=== PATIENT | male | born 1945 | race African-American/Black ===

== ENCOUNTER 2018-12-05 18:14 | Inpatient (IN) ==
[2018-12-05] MEDS ORDERED: CEFEPIME 2,000 MG/20 ML VIAL IV STA (18:41)
[2018-12-05] MEDS ORDERED: SODIUM CHLORIDE 0.9% 1000ML 1,000 ML IV ONE ×2 (18:43→20:13)
[2018-12-05] MEDS ORDERED: ACETAMINOPHEN 65 ML IV SCH (18:45)
--- NOTE | 2018-12-05 18:58 | XRay Report ---
XR chest 1V portable CLINICAL HISTORY: Sepsis COMPARISON STUDY: No previous studies for comparison. FINDINGS: Lung volumes are normal. There is no pneumothorax or pleural effusion. There is no evidence for pulmonary edema. Cardiac size is normal. Mediastinal contours are normal. A moderate size left m idlung airspace opacity is noted. IMPRESSION: Left midlung airspace opacity which favors pneumonia. Post treatment radiographs to ensu re resolution are recommended. Electronically signed by: Hussein Blevins M.D. 12/05/2018 6:56 PM
[2018-12-05] MEDS ORDERED: AZITHROMYCIN 500 MG in DEXTROSE 5% 250 ML IV SCH (19:00)
[2018-12-05] MEDS ORDERED: ALBUT/IPRATROP 3MG/0.5MG NEB 3 ML VIAL NEB STA (19:01)
[2018-12-05 19:24] LABS: Basophils # (auto) 0.01 K/uL (0-0.2); Basophils % (auto) 0.1 %; Eosinophils # (auto) 0.01 K/uL (0-0.5); Eosinophils % (auto) 0.1 %; Hematocrit (blood only) 37.1 % (42-52); Hemoglobin 12.8 g/dL (14.0-18.0); Immature Granulocytes # (auto) 0.03 K/uL (0.00-0.02); Immature Granulocytes % (auto) 0.3 %; Lymphocytes % (auto) 19.9 %; Mean Corpuscular Hemoglobin 29.9 pg (25-34); Mean Corpuscular Hgb Conc 34.5 g/dL (32-36); Mean Corpuscular Volume 86.7 fL (80-100); Mean Platelet Volume 9.8 fL (7.4-10.4); Monocytes % (auto) 10.4 %; Neutrophils # (auto) 7.28 K/uL (1.4-6.5); Neutrophils % (auto) 69.2 %; Platelet Count 196 K/uL (130-400); RDW Coefficient of Variation 14.8 % (11.5-14.5); Red Blood Count 4.28 M/uL (4.7-6.1); White Blood Count 10.53 K/uL (4.8-10.8)
[2018-12-05 19:34] LABS: Appearance Urine Cloudy (Clear); Bacteria Urine Automated Negative (Negative); Bilirubin Urine Negative (Negative); Blood Urine 2+ (Negative); Color Urine Yellow; Epithelial Cell Urine Auto >30 /lpf (0-5); Glucose Urine UA Negative (Negative); Ketones Urine Trace (Negative); Leukocyte Esterase Urine Negative (Negative); Nitrite Urine Negative (Negative); Protein Urine 1+ (Negative); Specific Gravity Urine 1.022 (1.000-1.030); Urobilinogen Urine Negative (Negative)
[2018-12-05 19:35] LABS: Prothrombin Time 10.7 Seconds (9.0-12.0)
[2018-12-05] MEDS ORDERED: AZITHROMYCIN 500 MG in DEXTROSE 5% 250 ML IV ONE (19:45)
[2018-12-05 19:46] LABS: Alanine Aminotransferase 73 U/L (12-78); Albumin Level 3.4 gm/dl (3.4-5.0); Aspartate Aminotransferase 82 U/L (15-37); BUN Creatinine Ratio 14.6 (10-20); Blood Urea Nitrogen 33 mg/dl (7-18); Carbon Dioxide 24 mmol/L (21-32); Chloride 100 mmol/L (98-107); Creatinine Clr Calc Pharmacy 34.7 ml/min; Est GFR (African American) 32.4; Glucose 103 mg/dl (70-99); Potassium 4.3 mmol/L (3.5-5.1); Sodium 134 mmol/L (136-145)
[2018-12-05 19:48] LABS: RBC Urine Automated 0-4 /hpf (0-4)
[2018-12-05 19:49] LABS: Albumin Globulin Ratio 0.7 (0.9-2); Alkaline Phosphatase 116 U/L (45-117); Bilirubin,Total 0.5 mg/dl (0.2-1); Total Protein 8.4 gm/dl (6.4-8.2)
--- NOTE | 2018-12-05 20:42 | CT Scan Report ---
CT OF THE ABDOMEN AND PELVIS WITHOUT CONTRAST CLINICAL HISTORY: Possible stone. Right-sided pain. COMPARISON STUDY: No previous studies for comparison. TECHNIQUE: Axial images of the abdomen and pelvis were obtained without IV contrast. Images were revi ewed in the axial, sagittal, and coronal planes. Automated exposure control was utilized for the hunter dy. A dose lowering technique was utilized adhering to the principles of ALARA. FINDINGS: Business Objects Developer tomogram demonstrates left midlung airspace opacity. No ureteral calculi are present. There is no hydronephrosis. A 2 mm calcification may reflect a right renal calculus or a cortical ca lcification. There is no hydronephrosis or hydroureter. A water attenuation lesion within the upper p ole of the left kidney is suboptimally assessed on this unenhanced exam but favors a cyst. Unenhanced images of the liver, spleen, adrenal glands and pancreas are unremarkable. There is no evidence for a bowel obstruction. There is hyperdense material within the appendix without evidence for acute appe ndicitis. Note is made of sigmoid diverticulosis without evidence for acute diverticulitis. 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 Prominent bilateral lingual lymph nodes are indeterm inate but probably benign. There is extensive plaque within the abdominal aorta without aneurysmal di latation. No abdominal lymphadenopathy is present. No biliary or pancreatic ductal dilatation is pres ent. IMPRESSION: 1. No ureteral calculi or hydronephrosis. 2 mm right renal calcification could reflect a nonobstructi ng calculus or cortical calcification. 2. Left midlung airspace opacity on housing grant analyst image suggests pneumonia. Radiographic follow-up to ensure resolution is recommended. 3. Trabecular coarsening and cortical thickening within the right hemipelvis which suggests Paget's d isease of bone. 4. No acute process within the abdomen or pelvis on unenhanced exam. Electronically signed by: Hussein Blevins M.D. 12/05/2018 8:40 PM
[2018-12-05 21:01] LABS: Magnesium 2.3 mg/dl (1.8-2.4)
[2018-12-05 21:19] LABS: Thyroid Stimulating Hormone < 0.005 uIu/ml (0.300-4.500); Troponin I < 0.015 ng/ml (0-0.045)
--- NOTE | 2018-12-05 21:24 | Emergency Department Note ---
Entered by Violeta Hernandez acting as a scribe for History of Present Illness General Chief complaint: Kidney Stone Stated complaint: POSSIBLE KIDNEY STONE,DR REFERRED Time Seen by Provider: 12/05/18 18:37 Source: patient and family () Mode of arrival: ambulatory Limitations: no limitations History of Present Illness Provider complaint: Sepsis Onset (ago): day(s) 4 Pain Consistency: + other (worsening) Quality: + other (sepsis) Associated symptoms: + fever/chills, + weakness and + other (Additional symptoms: dizziness, fatigue, nasal congestion, right lower quadrant abdominal pain, right groin pain, dehydration, hypertension. Denies: urinary symptoms, diarrhea, testicular pain) Treatments prior to arrival: other (Tylenol) The patient is a 73 year old male with a history of diabetes and prostate issues who presents to the Emergency Room with complaints of worsening sepsis starting 4 days ago. The patient reports that he went to see Dr. Rose today because he had been experiencing dizziness, fevers, and chills for the past 4 days. He also complains of fatigue, minor nasal congestion, weakness, right lower quadrant abdominal pain, right groin pain, and dehydration. He denies any urinary symptoms, diarrhea, and testicular pain. He states that Dr. Rose noted that his blood pressure was low and that his kidney function was concerning during his visit so he was subsequently referred to the ED. Per , the patient was administered Tylenol at Dr. Rose's office. The patient denies experiencing similar symptoms in the past. Home Medications Home Medications Medication Instructions Recorded Confirmed Type aspirin 81 mg PO DAILY 12/05/18 12/05/18 History atorvastatin 80 mg PO HS 12/05/18 12/05/18 History cyanocobalamin (vitamin B-12) 500 mcg PO DAILY 12/05/18 12/05/18 History [Vitamin B-12] difluprednate [Durezol] 1 drp OPHTHALMIC (EYE) DAILY 12/05/18 12/05/18 History glimepiride 4 mg PO BID 12/05/18 12/05/18 History hydrocortisone See Rx Instructions .ROUTE .COMPLEX 12/05/18 12/05/18 History levothyroxine 88 mcg PO DAILY 12/05/18 12/05/18 History lisinopril 40 mg PO DAILY 12/05/18 12/05/18 History metformin 500 mg tablet 500 mg PO .COMPLEX 90 Days #270 tab 12/05/18 12/05/18 Rx multivitamin 1 tab PO DAILY 12/05/18 12/05/18 History sildenafil 50 mg PO DAILY PRN 12/05/18 12/05/18 History somatropin [Norditropin FlexPro] 0.2 mg SUBCUT DAILY 12/05/18 12/05/18 History tamsulosin 0.4 mg PO DAILY 12/05/18 12/05/18 History Allergies Allergy/AdvReac Type Severity Reaction Status Date / Time No Known Allergies Allergy Verified 12/05/18 20:01 Past Med/Surg History Medical History Diabetes mellitus Social History Preferred Language: Kinyarwanda marital status: current occupational status: employed Feels Safe at Home: Yes Smoking Status: Never smoker Review of Systems See HPI for pertinent positives & negatives. and A total of 10 systems reviewed and were otherwise negative Physical Exam Vital Signs Vital Signs - 24 hr 12/05/18 18:25 12/05/18 19:02 12/05/18 19:15 Temperature 37.5 C Temperature Source Oral Sepsis Recent Fever Within 48 Hours No Sepsis New/Unexplained Change in Mental Status No Sepsis Action Taken by Nursing No Action Required Pulse Rate 90 87 Pulse Rate [Apical] Pulse Rate from SpO2 Sensor Pulse Rhythm Regular Pulse Strength Normal Respiratory Rate 20 28 H 26 H Respiratory Effort / Characteristics Non-Labored Spontaneous Respiratory Depth Normal Respiratory Pattern Regular Blood Pressure 103/73 Blood Pressure Mean 83 Blood Pressure Position Sitting Pulse Oximetry 86 L Oxygen Delivery Method Room Air 12/05/18 19:27 12/05/18 19:30 12/05/18 19:39 Temperature Temperature Source Sepsis Recent Fever Within 48 Hours Sepsis New/Unexplained Change in Mental Status Sepsis Action Taken by Nursing Pulse Rate 102 H 89 Pulse Rate [Apical] 85 Pulse Rate from SpO2 Sensor 87 Pulse Rhythm Regular Pulse Strength Respiratory Rate 23 24 20 Respiratory Effort / Characteristics Non-Labored Spontaneous Respiratory Depth Respiratory Pattern Blood Pressure Blood Pressure Mean Blood Pressure Position Pulse Oximetry 100 100 97 Oxygen Delivery Method Room Air Room Air Room Air 12/05/18 19:45 12/05/18 20:00 12/05/18 20:05 Temperature Temperature Source Sepsis Recent Fever Within 48 Hours Sepsis New/Unexplained Change in Mental Status Sepsis Action Taken by Nursing Pulse Rate 84 87 85 Pulse Rate [Apical] Pulse Rate from SpO2 Sensor 84 90 85 Pulse Rhythm Pulse Strength Respiratory Rate 19 16 17 Respiratory Effort / Characteristics Respiratory Depth Respiratory Pattern Blood Pressure 111/60 Blood Pressure Mean 77 Blood Pressure Position Pulse Oximetry 99 100 100 Oxygen Delivery Method Room Air Room Air Room Air 12/05/18 20:15 12/05/18 20:30 12/05/18 20:45 Temperature Temperature Source Sepsis Recent Fever Within 48 Hours Sepsis New/Unexplained Change in Mental Status Sepsis Action Taken by Nursing Pulse Rate 84 83 80 Pulse Rate [Apical] Pulse Rate from SpO2 Sensor 82 84 79 Pulse Rhythm Pulse Strength Respiratory Rate 20 20 15 Respiratory Effort / Characteristics Respiratory Depth Respiratory Pattern Blood Pressure 116/63 Blood Pressure Mean 80 Blood Pressure Position Pulse Oximetry 100 100 100 Oxygen Delivery Method Room Air Room Air Room Air 12/05/18 21:00 12/05/18 21:15 12/05/18 21:30 Temperature Temperature Source Sepsis Recent Fever Within 48 Hours Sepsis New/Unexplained Change in Mental Status Sepsis Action Taken by Nursing Pulse Rate 76 76 81 Pulse Rate [Apical] Pulse Rate from SpO2 Sensor 72 Pulse Rhythm Pulse Strength Respiratory Rate 18 18 25 H Respiratory Effort / Characteristics Respiratory Depth Respiratory Pattern Blood Pressure 139/64 136/71 Blood Pressure Mean 89 92 Blood Pressure Position Pulse Oximetry 100 98 Oxygen Delivery Method Room Air Room Air GENERAL: Patient is in mild distress. Rigors noted. HEENT: No acute trauma, normocephalic atraumatic, mucous membranes moist, no nasal congestion, no scleral icterus. NECK: No stridor, no adenopathy, no meningismus, trachea is midline. LUNGS: Clear to auscultation bilaterally, no wheeze, no rhonchi, breath sounds equal. HEART: Without murmurs gallops or rubs, regular rate and rhythm. ABDOMEN: Soft, nontender, bowel sounds positive, no hernias, no peritonitis. EXTREMITIES: No cyanosis or edema, full range of motion of all the joints without pain or difficulty, no signs for acute trauma. GROIN: No cellulitis. NEUROLOGIC: Oriented x 3, no acute motor or sensory deficits, no focal weakness. SKIN: No rash, no jaundice, no diaphoresis. Course 1837: The patient was evaluated in room C1B, and a complete history and physical examination were performed. 1901: I checked on the patient and updated him on his results. 2045: I reevaluated the patient at this time. The patient is agreeable to the treatment plan. 2046: I reviewed the patient's case with Dr. Martinez - Hospitalist. Dr. Martinez will evaluate the patient for further management. Consultations Consultation #1: I reviewed the patient's case with Dr. Martinez - Hospitalist. Dr. Martinez will evaluate the patient for further management. Time: 20:47 Administered Medications Acetaminophen (Ofirmev) 65 mls @ 200 mls/hr IV Q8H TORRIE Stop: 01/04/19 18:44 Last Infusion: 12/05/18 19:36 Dose: 0 mls/hr Documented by: [id number] Admin: 12/05/18 19:16 Dose: 200 mls/hr Documented by: [id number] Discontinued Medications Albuterol (Duoneb) 3 ml NEB NOW STA Stop: 12/05/18 19:02 Last Admin: 12/05/18 19:38 Dose: 3 ml Documented by: [id number] Cefepime HCl (Maxipime) 2,000 mg in 20 mls @ 5 mls/min IV NOW STA; Protocol Stop: 12/05/18 18:44 Last Admin: 12/05/18 19:52 Dose: 5 mls/min Documented by: [id number] Sodium Chloride (Nss 1000ml) 1,000 mls @ 999 mls/hr IV .Q1H1M ONE Stop: 12/05/18 19:43 Last Infusion: 12/05/18 20:27 Dose: 0 mls/hr Documented by: [id number] Admin: 12/05/18 19:16 Dose: 999 mls/hr Documented by: [id number] Azithromycin 500 mg/ Dextrose 255 mls @ 127.5 mls/hr IV NOW ONE Stop: 12/05/18 21:44 Last Infusion: 12/05/18 21:56 Dose: 0 mls/hr Documented by: [id number] Admin: 12/05/18 19:56 Dose: 127.5 mls/hr Documented by: [id number] Sodium Chloride (Nss 1000ml) 1,000 mls @ 999 mls/hr IV .Q1H1M ONE Stop: 12/05/18 21:13 Last Infusion: 12/05/18 22:01 Dose: 0 mls/hr Documented by: [id number] Admin: 12/05/18 21:00 Dose: 999 mls/hr Documented by: [id number] Medical Decision Making Differential Diagnosis Differential diagnosis includes: sepsis, bacteremia, renal or liver failure, renal obstruction, diverticulitis, appendicitis, UTI, pyelonephritis, pneumonia, cellulitis. Medical Records Attestation: I reviewed the patient's medical records. Home Medications Current Medication List: was personally reviewed by me Laboratory Data Attestation: I reviewed the patient's lab results. Result diagrams: 12/05/18 19:15 12/05/18 19:15 Lab Results 12/05/18 12/05/18 12/05/18 Range/Units 19:15 19:15 19:15 WBC 10.53 (4.8-10.8) K/uL RBC 4.28 L (4.7-6.1) M/uL Hgb 12.8 L (14.0-18.0) g/dL Hct 37.1 L (42-52) % MCV 86.7 (80-100) fL MCH 29.9 (25-34) pg MCHC 34.5 (32-36) g/dL RDW Std Deviation 47.0 H (36.4-46.3) fL RDW Coeff of Virgie 14.8 H (11.5-14.5) % Plt Count 196 (130-400) K/uL MPV 9.8 (7.4-10.4) fL Immature Gran % (Auto) 0.3 % Neut % (Auto) 69.2 % Lymph % (Auto) 19.9 % Coffey % (Auto) 10.4 % Eos % (Auto) 0.1 % Baso % (Auto) 0.1 % Immature Gran # (Auto) 0.03 H (0.00-0.02) K/uL Neut # (Auto) 7.28 H (1.4-6.5) K/uL Lymph # (Auto) 2.10 (1.2-3.4) K/uL Coffey # (Auto) 1.10 H (0.11-0.59) K/uL Eos # (Auto) 0.01 (0-0.5) K/uL Baso # (Auto) 0.01 (0-0.2) K/uL PT 10.7 (9.0-12.0) Seconds INR 1.0 (0.9-1.1) APTT 28.0 (21.0-31.0) Seconds PTT Ratio 1.0 Sodium (136-145) mmol/L Potassium (3.5-5.1) mmol/L Chloride (98-107) mmol/L Carbon Dioxide (21-32) mmol/L Anion Gap (3-11) BUN (7-18) mg/dl Creatinine (0.6-1.4) mg/dl Est Cr Clr Drug Dosing ml/min Est GFR ( Amer) Est GFR (Non-Af Amer) BUN/Creatinine Ratio (10-20) Glucose (70-99) mg/dl Lactate (0.4-2.0) mmol/L Calcium (8.5-10.1) mg/dl Magnesium (1.8-2.4) mg/dl Total Bilirubin (0.2-1) mg/dl AST (15-37) U/L ALT (12-78) U/L Alkaline Phosphatase (45-117) U/L Total Creatine Kinase (39-308) U/L Troponin I (0-0.045) ng/ml Total Protein (6.4-8.2) gm/dl Albumin (3.4-5.0) gm/dl Globulin (2.5-4.0) gm/dl Albumin/Globulin Ratio (0.9-2) Procalcitonin 0.92 H (0-0.5) ng/ml TSH (0.300-4.500) uIu/ml Free T4 (0.8-1.6) ng/dl Urine Color Urine Appearance (Clear) Urine pH (4.5-7.5) Ur Specific Blanco (1.000-1.030) Urine Protein (Negative) Urine Glucose (UA) (Negative) Urine Ketones (Negative) Urine Blood (Negative) Urine Nitrite (Negative) Urine Bilirubin (Negative) Urine Urobilinogen (Negative) Ur Leukocyte Esterase (Negative) Urine WBC (Auto) (0-5) /hpf Urine RBC (Auto) (0-4) /hpf U Hyaline Cast (Auto) (0-5) /lpf U Epithel Cells (Auto) (0-5) /lpf Urine Bacteria (Auto) (Negative) Ur Renal Epithelial Cell WBC Casts (0) /lpf Urine Yeast Influenza Type A (PCR) (Neg) Influenza Type B (PCR) (Neg) 12/05/18 12/05/18 12/05/18 Range/Units 19:15 19:15 19:23 WBC (4.8-10.8) K/uL RBC (4.7-6.1) M/uL Hgb (14.0-18.0) g/dL Hct (42-52) % MCV (80-100) fL MCH (25-34) pg MCHC (32-36) g/dL RDW Std Deviation (36.4-46.3) fL RDW Coeff of Virgie (11.5-14.5) % Plt Count (130-400) K/uL MPV (7.4-10.4) fL Immature Gran % (Auto) % Neut % (Auto) % Lymph % (Auto) % Coffey % (Auto) % Eos % (Auto) % Baso % (Auto) % Immature Gran # (Auto) (0.00-0.02) K/uL Neut # (Auto) (1.4-6.5) K/uL Lymph # (Auto) (1.2-3.4) K/uL Coffey # (Auto) (0.11-0.59) K/uL Eos # (Auto) (0-0.5) K/uL Baso # (Auto) (0-0.2) K/uL PT (9.0-12.0) Seconds INR (0.9-1.1) APTT (21.0-31.0) Seconds PTT Ratio Sodium 134 L (136-145) mmol/L Potassium 4.3 (3.5-5.1) mmol/L Chloride 100 (98-107) mmol/L Carbon Dioxide 24 (21-32) mmol/L Anion Gap 10.0 (3-11) BUN 33 H (7-18) mg/dl Creatinine 2.27 H (0.6-1.4) mg/dl Est Cr Clr Drug Dosing 34.7 ml/min Est GFR ( Amer) 32.4 Est GFR (Non-Af Amer) 28.0 BUN/Creatinine Ratio 14.6 (10-20) Glucose 103 H (70-99) mg/dl Lactate 1.8 (0.4-2.0) mmol/L Calcium 9.0 (8.5-10.1) mg/dl Magnesium 2.3 (1.8-2.4) mg/dl Total Bilirubin 0.5 (0.2-1) mg/dl AST 82 H (15-37) U/L ALT 73 (12-78) U/L Alkaline Phosphatase 116 (45-117) U/L Total Creatine Kinase 1122 H (39-308) U/L Troponin I < 0.015 (0-0.045) ng/ml Total Protein 8.4 H (6.4-8.2) gm/dl Albumin 3.4 (3.4-5.0) gm/dl Globulin 5.0 H (2.5-4.0) gm/dl Albumin/Globulin Ratio 0.7 L (0.9-2) Procalcitonin (0-0.5) ng/ml TSH < 0.005 L (0.300-4.500) uIu/ml Free T4 1.03 (0.8-1.6) ng/dl Urine Color Yellow Urine Appearance Cloudy A (Clear) Urine pH 5.0 (4.5-7.5) Ur Specific Blanco 1.022 (1.000-1.030) Urine Protein 1+ H (Negative) Urine Glucose (UA) Negative (Negative) Urine Ketones Trace H (Negative) Urine Blood 2+ H (Negative) Urine Nitrite Negative (Negative) Urine Bilirubin Negative (Negative) Urine Urobilinogen Negative (Negative) Ur Leukocyte Esterase Negative (Negative) Urine WBC (Auto) 5-10 H (0-5) /hpf Urine RBC (Auto) 0-4 (0-4) /hpf U Hyaline Cast (Auto) 1-5 (0-5) /lpf U Epithel Cells (Auto) >30 H (0-5) /lpf Urine Bacteria (Auto) Negative (Negative) Ur Renal Epithelial Cell Not Reportable WBC Casts 1-5 H (0) /lpf Urine Yeast Not Reportable Influenza Type A (PCR) (Neg) Influenza Type B (PCR) (Neg) 12/05/18 Range/Units 21:09 WBC (4.8-10.8) K/uL RBC (4.7-6.1) M/uL Hgb (14.0-18.0) g/dL Hct (42-52) % MCV (80-100) fL MCH (25-34) pg MCHC (32-36) g/dL RDW Std Deviation (36.4-46.3) fL RDW Coeff of Virgie (11.5-14.5) % Plt Count (130-400) K/uL MPV (7.4-10.4) fL Immature Gran % (Auto) % Neut % (Auto) % Lymph % (Auto) % Coffey % (Auto) % Eos % (Auto) % Baso % (Auto) % Immature Gran # (Auto) (0.00-0.02) K/uL Neut # (Auto) (1.4-6.5) K/uL Lymph # (Auto) (1.2-3.4) K/uL Coffey # (Auto) (0.11-0.59) K/uL Eos # (Auto) (0-0.5) K/uL Baso # (Auto) (0-0.2) K/uL PT (9.0-12.0) Seconds INR (0.9-1.1) APTT (21.0-31.0) Seconds PTT Ratio Sodium (136-145) mmol/L Potassium (3.5-5.1) mmol/L Chloride (98-107) mmol/L Carbon Dioxide (21-32) mmol/L Anion Gap (3-11) BUN (7-18) mg/dl Creatinine (0.6-1.4) mg/dl Est Cr Clr Drug Dosing ml/min Est GFR ( Amer) Est GFR (Non-Af Amer) BUN/Creatinine Ratio (10-20) Glucose (70-99) mg/dl Lactate (0.4-2.0) mmol/L Calcium (8.5-10.1) mg/dl Magnesium (1.8-2.4) mg/dl Total Bilirubin (0.2-1) mg/dl AST (15-37) U/L ALT (12-78) U/L Alkaline Phosphatase (45-117) U/L Total Creatine Kinase (39-308) U/L Troponin I (0-0.045) ng/ml Total Protein (6.4-8.2) gm/dl Albumin (3.4-5.0) gm/dl Globulin (2.5-4.0) gm/dl Albumin/Globulin Ratio (0.9-2) Procalcitonin (0-0.5) ng/ml TSH (0.300-4.500) uIu/ml Free T4 (0.8-1.6) ng/dl Urine Color Urine Appearance (Clear) Urine pH (4.5-7.5) Ur Specific Blanco (1.000-1.030) Urine Protein (Negative) Urine Glucose (UA) (Negative) Urine Ketones (Negative) Urine Blood (Negative) Urine Nitrite (Negative) Urine Bilirubin (Negative) Urine Urobilinogen (Negative) Ur Leukocyte Esterase (Negative) Urine WBC (Auto) (0-5) /hpf Urine RBC (Auto) (0-4) /hpf U Hyaline Cast (Auto) (0-5) /lpf U Epithel Cells (Auto) (0-5) /lpf Urine Bacteria (Auto) (Negative) Ur Renal Epithelial Cell WBC Casts (0) /lpf Urine Yeast Influenza Type A (PCR) Neg for Influ A (Neg) Influenza Type B (PCR) Neg for Influ B (Neg) Imaging Data Radiologist's Impression: Radiology results as stated below per my review and the radiologist's interpretation: XR chest 1V portable CLINICAL HISTORY: Sepsis COMPARISON STUDY: No previous studies for comparison. FINDINGS: Lung volumes are normal. There is no pneumothorax or pleural effusion. There is no evidence for pulmonary edema. Cardiac size is normal. Mediastinal contours are normal. A moderate size left midlung airspace opacity is noted. IMPRESSION: Left midlung airspace opacity which favors pneumonia. Post treatment radiographs to ensure resolution are recommended. Electronically signed by: Hussein Blevins M.D. 12/05/2018 6:[address] OF THE ABDOMEN AND PELVIS WITHOUT CONTRAST CLINICAL HISTORY: Possible stone. Right-sided pain. COMPARISON STUDY: No previous studies for comparison. TECHNIQUE: Axial images of the abdomen and pelvis were obtained without IV contrast. Images were reviewed in the axial, sagittal, and coronal planes. Automated exposure control was utilized for the study. A dose lowering technique was utilized adhering to the principles of ALARA. FINDINGS: Pecan Mallow Dipper tomogram demonstrates left midlung airspace opacity. No ureteral calculi are present. There is no hydronephrosis. A 2 mm calcification may reflect a right renal calculus or a cortical calcification. There is no hydronephrosis or hydroureter. A water attenuation lesion within the upper pole of the left kidney is suboptimally assessed on this unenhanced exam but favors a cyst. Unenhanced images of the liver, spleen, adrenal glands and pancreas are unremarkable. There is no evidence for a bowel obstruction. There is hyperdense material within the appendix without evidence for acute appendicitis. Note is made of sigmoid diverticulosis without evidence for acute diverticulitis. 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 Prominent bilateral lingual lymph nodes are indeterminate but probably benign. There is extensive plaque within the abdominal aorta without aneurysmal dilatation. No abdominal lymphadenopathy is present. No biliary or pancreatic ductal dilatation is present. IMPRESSION: 1. No ureteral calculi or hydronephrosis. 2 mm right renal calcification could reflect a nonobstructing calculus or cortical calcification. 2. Left midlung airspace opacity on propeller layout worker image suggests pneumonia. Radiographic follow-up to ensure resolution is recommended. 3. Trabecular coarsening and cortical thickening within the right hemipelvis which suggests Paget's disease of bone. 4. No acute process within the abdomen or pelvis on unenhanced exam. Electronically signed by: Hussein Blevins M.D. 12/05/2018 8:40 PM ECG Data Attestation: I personally reviewed and interpreted this ECG as follows: Indication: other (sepsis) Rate (beats per minute): 85 Rhythm: normal sinus Findings: + other (QTC is 423); no ST elevation and no acute ischemic change Blood Pressure Blood Pressure Findings: Elevated blood pressure Blood Pressure Disposition: further management by hospitalist [facility] Narrative There is no leukocytosis. The patient does have a mild anemia with a hemoglobin of 12.8. There is a normal platelet count. No coagulopathy. Renal panel testing does show some renal failure/dehydration with a creatinine of 2.27. Lactic acid level was not elevated making sepsis less likely. No worrisome liver enzyme elevations. Procalcitonin level was somewhat elevated making bacterial infection more likely. Urinalysis did not show evidence for infection. Blood cultures are pending. Chest film did show a left-sided pneumonia. Abdominal and pelvis CT did not show hydronephrosis or abscess. Patient was given IV Tylenol, a DuoNeb, IV Zithromax, IV cefepime and IV saline. 2 L of IV saline were administered. The patient does seem improved with the above treatment. I do think a hospital stay is warranted. He was hypotensive at his doctor's office, he was hypoxic when he presented here. He is dehydrated with some acute kidney injury and does have a left-sided pneumonia. I did speak with the patient and case management. The on-call hospitalist has been consulted. Impression & Plan Acute kidney injury, Hypotension, Hypoxia, Pneumonia, Dehydration, Rigors Discharge Plan Visit Data Chief Complaint: Kidney Stone Stated Complaint: POSSIBLE KIDNEY STONE,DR REFERRED ED Provider: Jose Martin Harrison Discharge Problem: Acute kidney injury, Hypotension, Hypoxia, Pneumonia, Dehydration, Rigors Patient Disposition: Admitted As Inpatient Discharge Instructions Interventions: ED Discharge Assessment Last Done: 12/05/18 22:16 Discharge Problem: Hypotension Qualifiers: Hypotension type: unspecified hypotension type Qualified Code(s): I95.9 - Hypotension, unspecified Pneumonia Qualifiers: Pneumonia type: due to unspecified organism Laterality: left Lung location: lower lobe of lung Qualified Code(s): J18.1 - Lobar pneumonia, unspecified organism The scribe's documentation has been prepared under my direction and personally reviewed by me in its entirety. I confirm that the note above accurately reflects all work, treatment, procedures, and medical decision making performed by me.
[2018-12-05 21:32] LABS: T4 Free Thyroxine 1.03 ng/dl (0.8-1.6)
--- NOTE | 2018-12-05 21:35 | History & Physical Report ---
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 Possible sources: Atypical pneumonia Complicated UTI, history BPH ARF secondary to illness, clinical dehydration, home medications, mild rhabdomyolysis hypertension, BP initially on the lower side DM 2 on oral medications, reasonable control as of recent outpatient hemoglobin A1c of 7.25 February 2018 chronic anemia, hemoglobin at baseline past tobacco abuse Medical telemetry Cultures, Doxycycline for atypical pneumonia, Cefepime for complicated UTI Monitor creatinine response to IV fluids, appropriate to hold home KELSEY inhibitor for now until creatinine at baseline, follow CPK Continue home steroid dose, may need stress dose IV steroids if with hypotension ISS BG goal 1 40-1 80, may need basal insulin, update hemoglobin A1c PT OT eval DVT prophylaxis. Heparin subcu Full code History of Present Illness Chief Complaint: Dizziness, not feeling well, fever Primary Care Provider: Mark Geronimo DO History obtained from patient, family, and records. Medical history significant for hypertension, DM 2 on oral medications, hx hypo functioning pituitary adenoma on chronic hormonal replacement Rx, chronic anemia baseline hemoglobin 12-13, past tobacco abuse. Patient feeling dizzy, having malaise symptoms since last week. Dry cough symptoms without chest pain, S OB. Poor appetite. Minimal abdominal discomfort without diarrhea/dysuria. Low-grade fever at home. Patient sent to the ER for evaluation from PCPs office. O2 sats initially 80s upon arrival at the ER. Patient received Cefepime and Azithromycin for possible sepsis. 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 Allergies Allergy/AdvReac Type Severity Reaction Status Date / Time No Known Allergies Allergy Verified 12/05/18 20:01 Home Medications Home Medications Medication Instructions Recorded Confirmed Type aspirin 81 mg PO DAILY 12/05/18 12/05/18 History atorvastatin 80 mg PO HS 12/05/18 12/05/18 History cyanocobalamin (vitamin B-12) 500 mcg PO DAILY 12/05/18 12/05/18 History [Vitamin B-12] difluprednate [Durezol] 1 drp OPHTHALMIC (EYE) DAILY 12/05/18 12/05/18 History glimepiride 4 mg PO BID 12/05/18 12/05/18 History hydrocortisone See Rx Instructions .ROUTE .COMPLEX 12/05/18 12/05/18 History levothyroxine 88 mcg PO DAILY 12/05/18 12/05/18 History lisinopril 40 mg PO DAILY 12/05/18 12/05/18 History metformin 500 mg tablet 500 mg PO .COMPLEX 90 Days #270 tab 12/05/18 12/05/18 Rx multivitamin 1 tab PO DAILY 12/05/18 12/05/18 History sildenafil 50 mg PO DAILY PRN 12/05/18 12/05/18 History somatropin [Norditropin FlexPro] 0.2 mg SUBCUT DAILY 12/05/18 12/05/18 History tamsulosin 0.4 mg PO DAILY 12/05/18 12/05/18 History Past Med/Surg History Social History Preferred Language: French Communication Ability: Effective 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 Beliefs That Will Affect Care: None marital status: Current Living Situation: Spouse current occupational status: employed Other Information That Helps Us Care for You: No Feels Safe at Home: Yes Safety Concerns: Feels Safe At This Time Smoking Status: Former smoker Do You Dip or Chew Tobacco: No ; Hx Substance Use: No Review of Systems Review of Systems: As per HPI, all 10 systems reviewed, all other ROS negative Physical Exam Physical Exam: GENERAL: Slightly uncomfortable, wane, shivering, pleasant, no respiratory distress SKIN: Pallor, warm HEENT: Bespectacled, pale palpebral conjunctivae, no ptosis, dry buccal mucosa NECK : Supple, no tenderness CHEST : CTA, no tenderness HEART : RRR, no obvious murmurs ABDOMEN: Some distention, nontender EXTREMITIES : No LE swelling/tenderness, no other conspicuous deformities noted NEUROLOGIC : Coherent, no facial asymmetry, no other gross focality set for rest tremors Results & Data Vital Signs (Past 12 Hours) Vital Signs Temp Pulse Pulse Resp BP Pulse Ox 12/05/18 21:00 76 18 139/64 100 12/05/18 20:45 80 15 100 12/05/18 20:30 83 20 116/63 100 12/05/18 20:15 84 20 100 12/05/18 20:05 85 17 111/60 100 12/05/18 20:00 87 16 100 12/05/18 19:45 84 19 99 12/05/18 19:39 85 20 97 12/05/18 19:30 89 24 100 12/05/18 19:27 102 H 23 100 12/05/18 19:15 26 H 12/05/18 19:02 87 28 H 12/05/18 18:25 37.5 C 90 20 103/73 86 L Laboratory Results Laboratory Results WBC 10.53 K/uL (4.8-10.8) 12/05/18 19:15 RBC 4.28 M/uL (4.7-6.1) L 12/05/18 19:15 Hgb 12.8 g/dL (14.0-18.0) L 12/05/18 19:15 Hct 37.1 % (42-52) L 12/05/18 19:15 MCV 86.7 fL (80-100) 12/05/18 19:15 MCH 29.9 pg (25-34) 12/05/18 19:15 MCHC 34.5 g/dL (32-36) 12/05/18 19:15 RDW Std Deviation 47.0 fL (36.4-46.3) H 12/05/18 19:15 RDW Coeff of Virgie 14.8 % (11.5-14.5) H 12/05/18 19:15 Plt Count 196 K/uL (130-400) 12/05/18 19:15 MPV 9.8 fL (7.4-10.4) 12/05/18 19:15 Immature Gran % (Auto) 0.3 % 12/05/18 19:15 Neut % (Auto) 69.2 % 12/05/18 19:15 Lymph % (Auto) 19.9 % 12/05/18 19:15 [place] % (Auto) 10.4 % 12/05/18 19:15 Eos % (Auto) 0.1 % 12/05/18 19:15 Baso % (Auto) 0.1 % 12/05/18 19:15 Immature Gran # (Auto) 0.03 K/uL (0.00-0.02) H 12/05/18 19:15 Neut # (Auto) 7.28 K/uL (1.4-6.5) H 12/05/18 19:15 Lymph # (Auto) 2.10 K/uL (1.2-3.4) 12/05/18 19:15 [place] # (Auto) 1.10 K/uL (0.11-0.59) H 12/05/18 19:15 Eos # (Auto) 0.01 K/uL (0-0.5) 12/05/18 19:15 Baso # (Auto) 0.01 K/uL (0-0.2) 12/05/18 19:15 PT 10.7 Seconds (9.0-12.0) 12/05/18 19:15 INR 1.0 (0.9-1.1) 12/05/18 19:15 APTT 28.0 Seconds (21.0-31.0) 12/05/18 19:15 PTT Ratio 1.0 12/05/18 19:15 Sodium 134 mmol/L (136-145) L 12/05/18 19:15 Potassium 4.3 mmol/L (3.5-5.1) 12/05/18 19:15 Chloride 100 mmol/L (98-107) 12/05/18 19:15 Carbon Dioxide 24 mmol/L (21-32) 12/05/18 19:15 Anion Gap 10.0 (3-11) 12/05/18 19:15 BUN 33 mg/dl (7-18) H 12/05/18 19:15 Creatinine 2.27 mg/dl (0.6-1.4) H 12/05/18 19:15 Est Cr Clr Drug Dosing 34.7 ml/min 12/05/18 19:15 Est GFR ( Amer) 32.4 12/05/18 19:15 Est GFR (Non-Af Amer) 28.0 12/05/18 19:15 BUN/Creatinine Ratio 14.6 (10-20) 12/05/18 19:15 Glucose 103 mg/dl (70-99) H 12/05/18 19:15 Lactate 1.8 mmol/L (0.4-2.0) 12/05/18 19:15 Calcium 9.0 mg/dl (8.5-10.1) 12/05/18 19:15 Magnesium 2.3 mg/dl (1.8-2.4) 12/05/18 19:15 Total Bilirubin 0.5 mg/dl (0.2-1) 12/05/18 19:15 AST 82 U/L (15-37) H 12/05/18 19:15 ALT 73 U/L (12-78) 12/05/18 19:15 Alkaline Phosphatase 116 U/L (45-117) 12/05/18 19:15 Troponin I < 0.015 ng/ml (0-0.045) 12/05/18 19:15 Total Protein 8.4 gm/dl (6.4-8.2) H 12/05/18 19:15 Albumin 3.4 gm/dl (3.4-5.0) 12/05/18:15 Globulin 5.0 gm/dl (2.5-4.0) H 12/05/18 19:15 Albumin/Globulin Ratio 0.7 (0.9-2) L 12/05/18 19:15 Procalcitonin 0.92 ng/ml (0-0.5) H 12/05/18 19: TSH < 0.005 uIu/ml (0.300-4.500) L 12/05/18 19:15 Free T4 1.03 ng/dl (0.8-1.6) 12/05/18 19: Urine Color Yellow 12/05/18: Urine Appearance Cloudy (Clear) A 12/05/18: Urine pH 5.0 (4.5-7.5) 12/05/18: Ur Specific [place] 1.022 (1.000-1.030) 12/05/18: Urine Protein 1+ (Negative) H 12/05/18 19: Urine Glucose (UA) Negative (Negative) 12/05/18 19: Urine Ketones Trace (Negative) H 12/05/18: Urine Blood 2+ (Negative) H 12/05/18: Urine Nitrite Negative (Negative) 12/05/18: Urine Bilirubin Negative (Negative) 12/05/18 19: Urine Urobilinogen Negative (Negative) 12/05/18 19: Ur Leukocyte Esterase Negative (Negative) 12/05/18: Urine WBC (Auto) 5-10 /hpf (0-5) H 12/05/18 19:23 Urine RBC (Auto) 0-4 /hpf (0-4) 12/05/18 19:23 U Hyaline Cast (Auto) 1-5 /lpf (0-5) 12/05/18 19:23 U Epithel Cells (Auto) >30 /lpf (0-5) H 12/05/18 19:23 Urine Bacteria (Auto) Negative (Negative) 12/05/18 19:23 Ur Renal Epithelial Cell Not Reportable 12/05/18 19:23 WBC Casts 1-5 /lpf (0) H 12/05/18 19:23 Urine Yeast Not Reportable 12/05/18 19:23 Diagnostic Findings Chest x-ray : Left midlung airspace opacity which favors pneumonia. Post treatment radiographs to ensure resolution are recommended. EKG as per my interpretation : Rate 85, NSR, LAD, LAFB, no ischemia CT abdomen pelvis: 1. No ureteral calculi or hydronephrosis. 2 mm right renal calcification could reflect a nonobstructing calculus or cortical calcification. 2. Left midlung airspace opacity on milk drier image suggests pneumonia. Radiographic follow-up to ensure resolution is recommended. 3. Trabecular coarsening and cortical thickening within the right hemipelvis which suggests Paget's disease of bone.
[2018-12-05] MEDS ORDERED: HYDROCORTISONE 10 MG TAB PO SCH (21:40)
[2018-12-05 21:48] LABS: Influenza A virus by PCR Neg for Influ A (Neg); Influenza B virus by PCR Neg for Influ B (Neg)
[2018-12-05 22:19] LABS: Creatine Kinase 1122 U/L (39-308)
[2018-12-05] MEDS ORDERED: GLUCAGON FOR INJ 1 MG VIAL SQ PRN (22:43)
[2018-12-05] MEDS ORDERED: GLUCOSE 10 TABS/TUBE PO PRN (22:43)
[2018-12-05] MEDS ORDERED: PROMETHAZINE HCL 12.5 MG in SODIUM CHLORIDE 0.9% 50 ML IV PRN (22:43)
[2018-12-05] MEDS ORDERED: CARBOHYDRATES FOR HYPOGLYCEMIA PO PRN (22:43)
[2018-12-05] MEDS ORDERED: GLUCOSE 40% GEL 15 GM TUBE PO PRN (22:43)
[2018-12-05] MEDS ORDERED: NITROGLYCERIN SL 0.4 MG/TAB TAB SL PRN (22:43)
[2018-12-05] MEDS ORDERED: DEXTROSE 50% 50 ML SYRINGE IV PRN (22:43)
[2018-12-06] MEDS: SODIUM CHLORIDE 0.9% 1000ML 1,000 ML IV SCH ×2 (00:01→12:24)
[2018-12-06] MEDS: INSULIN ASPART 100 UNITS/ML 3 ML PEN SC SCH ×5 (00:01→20:53)
[2018-12-06] MEDS: HEPARIN SOD 5,000 UNIT/0.5 ML VIAL SQ SCH ×4 (00:01→20:56)
[2018-12-06] MEDS ORDERED: XOPENEX/ATROVENT 1.25mg/0.5MG NEB COMBO NEB PRN (00:46)
[2018-12-06] MEDS ORDERED: IPRATROPIUM BROMIDE NEB SOLN 0.02% 2.5 ML VIAL INH PRN (01:00)
[2018-12-06] MEDS ORDERED: LEVALBUTEROL 1.25MG/0.5ML NEB INH PRN (01:00)
[2018-12-06] MEDS: ACETAMINOPHEN 325 MG TAB PO PRN ×2 (05:49→15:41)
[2018-12-06] MEDS: LEVOTHYROXINE SODIUM 88 MCG TABLET PO SCH (05:49)
[2018-12-06] MEDS ORDERED: OLANZapine 10 MG/2.1 ML SDV IM PRN (06:12)
[2018-12-06] MEDS ORDERED: AMLODIPINE BESYLATE 5 MG TAB PO SCH (06:15)
[2018-12-06 06:34] LABS: Estimated Average Glucose 171 mg/dl; Hemoglobin A1C 7.6 % (4.5-5.6)
[2018-12-06 06:38] LABS: Basophils # (auto) 0.02 K/uL (0-0.2); Basophils % (auto) 0.3 %; Hematocrit (blood only) 33.5 % (42-52); Hemoglobin 11.1 g/dL (14.0-18.0); Immature Granulocytes # (auto) 0.02 K/uL (0.00-0.02); Immature Granulocytes % (auto) 0.3 %; Lymphocytes # (auto) 2.03 K/uL (1.2-3.4); Lymphocytes % (auto) 28.8 %; Mean Corpuscular Hemoglobin 28.5 pg (25-34); Mean Corpuscular Hgb Conc 33.1 g/dL (32-36); Mean Corpuscular Volume 86.1 fL (80-100); Mean Platelet Volume 9.4 fL (7.4-10.4); Monocytes # (auto) 0.78 K/uL (0.11-0.59); Monocytes % (auto) 11.1 %; Neutrophils # (auto) 4.19 K/uL (1.4-6.5); Neutrophils % (auto) 59.5 %; Platelet Count 165 K/uL (130-400); RDW Coefficient of Variation 14.7 % (11.5-14.5); RDW Standard Deviation 46.6 fL (36.4-46.3); Red Blood Count 3.89 M/uL (4.7-6.1); White Blood Count 7.04 K/uL (4.8-10.8)
[2018-12-06] MEDS ORDERED: CEFEPIME CONSULT ACTIVE PRN (06:39)
[2018-12-06 07:02] LABS: BUN Creatinine Ratio 16.2 (10-20); Calcium 8.4 mg/dl (8.5-10.1); Est GFR (African American) 49.5; Est GFR (Non-African American) 42.7; Potassium 3.9 mmol/L (3.5-5.1)
[2018-12-06] MEDS: HYDROCORTISONE 10 MG TAB PO SCH (08:12)
[2018-12-06] MEDS: MULTIVITAMIN TAB PO SCH (08:13)
[2018-12-06] MEDS: DOXYCYCLINE HYCLATE 100 MG CAP PO SCH ×2 (08:13→20:55)
[2018-12-06] MEDS: TAMSULOSIN HCL 0.4 MG CAP PO SCH (08:13)
[2018-12-06] MEDS: CYANOCOBALAMIN 500 MCG TABLET (VITAMIN B-12) PO SCH (08:13)
[2018-12-06] MEDS: ASPIRIN 81 MG ECTAB PO SCH (08:13)
--- NOTE | 2018-12-06 12:14 | Hospitalist Progress Note ---
Date of Service December 06, 2018 Assessment & Plan (1) Sepsis: (2) Pneumonia: Present on admission with fever, chills associated with weakness Meet sepsis criteria with Temp above 39, Elevated RR with infiltrate on CXR CXR showed left midlung airspace opacity which favors pneumonia CT showed Left midlung airspace opacity on momd teacher image suggests pneumonia. 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 Will resume somatropin Dyslipidemia Continue statin CODE STATUS FULL CODE DISPOSITION Will discharge home once medically stable Subjective Pt was seen and examined Sitting in chair with daughter at bedside Pt said that he feels a little weak He was walking with therapy today Denies any chest pain, palpitation, dizziness and SOB Physical Exam Physical Exam: General- No acute distress Head- atraumatic Eyes- PERRL, EOMI, ENT- oropharynx clear Neck- supple, no JVD Lungs- clear to auscultation Heart- regular rhythm; no murmur Abdomen- normal bowel sounds, soft, nontender Extremities- no calf tenderness Neuro- alert, oriented x 3; PERRL, EOMI; no facial palsy; no dysarthria Skin- warm & dry Results & Data Vital Signs (Past 12 Hours) Vital Signs Temp Pulse Pulse Pulse Resp BP Pulse Ox 12/06/18 12:00 37.2 C 75 18 105/64 97 12/06/18 08:00 79 12/06/18 07:57 36.8 C 12/06/18 07:28 37.9 C H 84 18 114/71 93 12/06/18 05:45 39.5 C H 12/06/18 04:00 36.8 C 84 18 160/84 H 95 (1) Pneumonia Laterality: left Lung location: lower lobe of lung Pneumonia type: due to unspecified organism Qualified Code(s): J18.1 - Lobar pneumonia, unspecified organism
[2018-12-06] MEDS ORDERED: CEFEPIME 2,000 MG in SYRINGE 7.5 ML IV SCH (20:00)
[2018-12-06] MEDS: NSS + 20MEQ KCL 20 MEQ/1,000 ML BAG IV SCH (20:53)
[2018-12-06] MEDS ORDERED: ATORVASTATIN 40 MG TAB PO SCH (21:00)
[2018-12-06] MEDS ORDERED: HYDROCORTISONE 10 MG TAB PO SCH (21:00)
[2018-12-07] MEDS: HEPARIN SOD 5,000 UNIT/0.5 ML VIAL SQ SCH ×2 (06:04→14:03)
[2018-12-07] MEDS: LEVOTHYROXINE SODIUM 88 MCG TABLET PO SCH (06:04)
[2018-12-07 08:17] LABS: BUN Creatinine Ratio 16.4 (10-20); Calcium 8.6 mg/dl (8.5-10.1); Creatinine Clr Calc Pharmacy 71.4 ml/min; Est GFR (African American) 69.4; Est GFR (Non-African American) 59.9
[2018-12-07] MEDS: INSULIN ASPART 100 UNITS/ML 3 ML PEN SC SCH ×2 (08:40→13:07)
[2018-12-07] MEDS: MULTIVITAMIN TAB PO SCH (09:28)
[2018-12-07] MEDS: TAMSULOSIN HCL 0.4 MG CAP PO SCH (09:29)
[2018-12-07] MEDS: HYDROCORTISONE 10 MG TAB PO SCH (09:29)
[2018-12-07] MEDS: ASPIRIN 81 MG ECTAB PO SCH (09:29)
[2018-12-07] MEDS: DOXYCYCLINE HYCLATE 100 MG CAP PO SCH (09:30)
[2018-12-07] MEDS: CYANOCOBALAMIN 500 MCG TABLET (VITAMIN B-12) PO SCH (09:30)
[2018-12-07] MEDS: NSS + 20MEQ KCL 20 MEQ/1,000 ML BAG IV SCH (09:36)
--- NOTE | 2018-12-07 11:25 | Hospitalist Progress Note ---
Date of Service December 07, 2018 Assessment & Plan (1) Sepsis: (2) Pneumonia: Present on admission with fever, chills associated with weakness Meet sepsis criteria with Temp above 39, Elevated RR with infiltrate on CXR CXR showed left midlung airspace opacity which favors pneumonia CT showed Left midlung airspace opacity on driver/refuse collector image suggests pneumonia. Influenza PCR was negative Received IV Cefepime and doxycycline Blood cx no growth Has been afebrile for 24 hrs Clinically improved significantly Will discharge home on doxycycline BID Will need post treatment radiograph imaging to ensure resolution for the left opacity in 6 to 8 weeks (3) Acute kidney injury: Possible related to dehydration due to poor oral intake Creatinine on admission 2.2, creatinine btw 1.1 to 1.3 Received IVF Creatinine improved to 1.2 today OK to resume lisinopril and metformin on discharge Monitor BMP DM type 2 Last Hba1c 7.6 on 03/11 Metformin and glipizide was held during hospital course, OK to resume On insulin sliding scale Continue monitor 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 Geronimo Subjective Pt was seen and examined Sitting in chair with no distress with and daughter at bedside Pt said that he feels much better today He said that he did a couple lap in the hallway this morning He said that he is about 80% to his baseline Denies any chest pain, palpitation, dizziness and SOB Physical Exam Physical Exam: General- No acute distress Head- atraumatic Eyes- PERRL, EOMI, ENT- oropharynx clear Neck- supple, no JVD Lungs- clear to auscultation Heart- regular rhythm; no murmur Abdomen- normal bowel sounds, soft, nontender Extremities- no calf tenderness Neuro- alert, oriented x 3; PERRL, EOMI; no facial palsy; no dysarthria Skin- warm & dry Results & Data Vital Signs (Past 12 Hours) Vital Signs Temp Pulse Pulse Resp BP Pulse Ox 12/07/18 07:10 37.3 C 64 18 148/79 H 98 12/07/18 03:40 36.8 C 73 18 149/76 H 96 12/07/18 02:05 37.4 C 12/06/18 23:44 70 (1) Pneumonia Laterality: left Lung location: lower lobe of lung Pneumonia type: due to unspecified organism Qualified Code(s): J18.1 - Lobar pneumonia, unspecified organism
--- NOTE | 2018-12-07 23:16 | Discharge Summary ---
Date of Service December 07, 2018 Admission HPI Per Admitting Provider History obtained from patient, family, and records. Medical history significant for hypertension, DM 2 on oral medications, hx hypofunctioning pituitary adenoma on chronic hormonal replacement Rx, chronic anemia baseline hemoglobin 12-13, past tobacco abuse. Patient feeling dizzy, having malaise symptoms since last week. Dry cough symptoms without chest pain, S OB. Poor appetite. Minimal abdominal discomfort without diarrhea/dysuria. Low-grade fever at home. Patient sent to the ER for evaluation from PCPs office. O2 sats initially 80s upon arrival at the ER. Patient received Cefepime and Azithromycin for possible sepsis. 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 Admission Exam Per Admitting Provider GENERAL: Slightly uncomfortable, wane, shivering, pleasant, no respiratory distress SKIN: Pallor, warm HEENT: Bespectacled, pale palpebral conjunctivae, no ptosis, dry buccal mucosa NECK : Supple, no tenderness CHEST : CTA, no tenderness HEART : RRR, no obvious murmurs ABDOMEN: Some distention, nontender EXTREMITIES : No LE swelling/tenderness, no other conspicuous deformities noted NEUROLOGIC : Coherent, no facial asymmetry, no other gross focality set for rest tremors Principal Diagnosis Sepsis Pneumonia Acute kidney injury Discharge Exam General- No acute distress Head- atraumatic Eyes- PERRL, EOMI, ENT- oropharynx clear Neck- supple, no JVD Lungs- clear to auscultation Heart- regular rhythm; no murmur Abdomen- normal bowel sounds, soft, nontender Extremities- no calf tenderness Neuro- alert, oriented x 3; PERRL, EOMI; no facial palsy; no dysarthria Skin- warm & dry Discharge Data Allergies Allergy/AdvReac Type Severity Reaction Status Date / Time No Known Allergies Allergy Verified 12/05/18 20:01 Consultations 12/05/18 20:49 ED Decision to Admit Stat Ordered Studies 12/05/18 18:41 CT abd pelvis wo con Stat XR chest 1V portable CLINICAL HISTORY: Sepsis COMPARISON STUDY: No previous studies for comparison. FINDINGS: Lung volumes are normal. There is no pneumothorax or pleural effusion. There is no evidence for pulmonary edema. Cardiac size is normal. Mediastinal contours are normal. A moderate size left midlung airspace opacity is noted. IMPRESSION: Left midlung airspace opacity which favors pneumonia. Post treatment radiographs to ensure resolution are recommended. Electronically signed by: Hussein Blevins M.D. 12/05/2018 6:56 PM Dictated: 12/05/181854 Transcribed: 12/05/181854 CT OF THE ABDOMEN AND PELVIS WITHOUT CONTRAST CLINICAL HISTORY: Possible stone. Right-sided pain. COMPARISON STUDY: No previous studies for comparison. TECHNIQUE: Axial images of the abdomen and pelvis were obtained without IV contrast. Images were reviewed in the axial, sagittal, and coronal planes. Automated exposure control was utilized for the study. A dose lowering technique was utilized adhering to the principles of ALARA. FINDINGS: Binding Nicker tomogram demonstrates left midlung airspace opacity. No ureteral calculi are present. There is no hydronephrosis. A 2 mm calcification may reflect a right renal calculus or a cortical calcification. There is no hydronephrosis or hydroureter. A water attenuation lesion within the upper pole of the left kidney is suboptimally assessed on this unenhanced exam but favors a cyst. Unenhanced images of the liver, spleen, adrenal glands and pancreas are unremarkable. There is no evidence for a bowel obstruction. There is hyperdense material within the appendix without evidence for acute appendicitis. Note is made of sigmoid diverticulosis without evidence for acute diverticulitis. 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 Prominent bilateral lingual lymph nodes are indeterminate but probably benign. There is extensive plaque within the abdominal aorta without aneurysmal dilatation. No abdominal lymphadenopathy is present. No biliary or pancreatic ductal dilatation is present. IMPRESSION: 1. No ureteral calculi or hydronephrosis. 2 mm right renal calcification could reflect a nonobstructing calculus or cortical calcification. 2. Left midlung airspace opacity on furnace reliner image suggests pneumonia. Radiographic follow-up to ensure resolution is recommended. 3. Trabecular coarsening and cortical thickening within the right hemipelvis which suggests Paget's disease of bone. 4. No acute process within the abdomen or pelvis on unenhanced exam. Electronically signed by: Hussein Blevins M.D. 12/05/2018 8:40 PM Dictated: 12/05/182029 Transcribed: 12/05/182029 Hospital Course (1) Sepsis: (2) Pneumonia: Present on admission with fever, chills associated with weakness Meet sepsis criteria with Temp above 39, Elevated RR with infiltrate on CXR CXR showed left midlung airspace opacity which favors pneumonia CT showed Left midlung airspace opacity on furnace reliner image suggests pneumonia. Influenza PCR was negative Received IV Cefepime and doxycycline Blood cx no growth Has been afebrile for 24 hrs Clinically improved significantly Will discharge home on doxycycline BID Will need post treatment radiograph imaging to ensure resolution for the left opacity in 6 to 8 weeks (3) Acute kidney injury: Possible related to dehydration due to poor oral intake Creatinine on admission 2.2, creatinine btw 1.1 to 1.3 Received IVF Creatinine improved to 1.2 today OK to resume lisinopril and metformin on discharge Monitor BMP DM type 2 Last Hba1c 7.6 on 03/11 Metformin and glipizide was held during hospital course, OK to resume On insulin sliding scale Continue monitor 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 Geronimo Total Time Total Time Spent Total Time Spent (In Minutes): 35 minutes Total Time Includes: Examination of the Patient, Discharge Planning, Medication Reconciliation, Communication With Other Providers and Other Discharge Plan Discharge Items Patient Disposition: Home - Self-Care Reason For Visit: RESP FAILURE, ARF Discharge Diagnosis: Sepsis Pneumonia Acute kidney injury Activity: Resume your previous activity Activity Comment: As tolerated Non-emergency contact: Primary Care Provider Call non-emergency contact if: you have any medication questions and your temperature is above 101 Follow-up/Referrals: Mark Geronimo, [Primary Care Provider] - Diet: Carb Consistent or DM2 and Heart Healthy Addtl Attending Provider Instructions: Follow up with your primary care provider Dr. Geronimo within 1 week (Office will call you for the appointment ) Complete the course of the antibiotic with Doxycycline Final blood culture result pending Fall precaution Monitor your blood pressure You will need post treatment radiograph imaging to ensure resolution for the left opacity in 6 to 8 weeks Pending Studies at Discharge: Yes Studies:: Final blood culture Stand-Alone Forms: My [facility] Medications and DC Order Prescriptions: New doxycycline hyclate 100 mg Capsule 100 mg PO BID 6 Days Qty: 12 RF: 0 guaifenesin 200 mg tablet 200 mg PO TID PRN (Reason: congestion) 5 Days Qty: 15 RF: 0 Continued metformin 500 mg tablet 500 mg PO .COMPLEX 90 Days Qty: 270 RF: 1 multivitamin Tablet 1 tab PO DAILY RF: 0 atorvastatin 80 mg tablet 80 mg PO HS RF: 0 sildenafil 50 mg Tablet 50 mg PO DAILY PRN (Reason: Erectile Dysfunction) RF: 0 aspirin 81 mg Tablet,Delayed Release (Dr/Ec) 81 mg PO DAILY RF: 0 levothyroxine 88 mcg tablet 88 mcg PO DAILY RF: 0 cyanocobalamin (vitamin B-12) [Vitamin B-12] 500 mcg Tablet 500 mcg PO DAILY RF: 0 tamsulosin 0.4 mg capsule 0.4 mg PO DAILY RF: 0 glimepiride 4 mg tablet 4 mg PO BID RF: 0 hydrocortisone 10 mg tablet See Rx Instructions .ROUTE .COMPLEX RF: 0 lisinopril 40 mg Tablet 40 mg PO DAILY RF: 0 Norditropin FlexPro 10 mg/1.5 mL (6.7 mg/mL) pen injector 0.2 mg subcut DAILY RF: 0 Durezol 0.05 % drops 1 drp ophthalmic (eye) DAILY RF: 0 Discharge Orders: Discharge Order (Routine); Ordered 12/07/18 Ordered By: Shanell Ruiz Admission Data Admit Date/Time: 12/05/18 21:38 Attending Provider: Shanell Ruiz Admit Provider: Jefferson Martinez Primary Care Provider: Mark Geronimo Other Providers: Jefferson Martinez Other Interventions: Discharge Summary Assessment (RN) Last Done: 12/07/18 12:01 DC Date/Time DO NOT enter until pt leaves facility: 12/07/18 14:17
== END 2018-12-07 14:17 | disposition home or self-care (01) | DRG 871 ==
LOC: ED 18:14 → 2N 21:38